=== PATIENT | male | born 1965 | race Caucasian/White ===

== ENCOUNTER 2021-12-27 15:19 | Emergency (ER) | payer OTHER ==
[2021-12-27] MEDS ORDERED: MORPHINE 4 MG/ML SYR ONE ×2 (16:56→18:03)
[2021-12-27] MEDS ORDERED: NA CHLORIDE 0.9% 1,000 ML ONE ×2 (16:57→18:12)
[2021-12-27] MEDS ORDERED: ONDANSETRON 4 MG/2 ML VIAL ONE (16:57)
[2021-12-27 17:06] LABS: Absolute Lymphocytes (CBC) 0.4 K/uL (0.7-4.9); Hematocrit 46.2 % (39.6-49.0); Lymphocytes % 3.2 % (15.3-44.8); MPV 9.9 fL (7.6-11.3); RBC Red Blood Cell Count 5.19 M/uL (4.33-5.43)
[2021-12-27 17:21] LABS: Albumin 4.2 g/dL (3.4-5.0); Bilirubin Total 0.7 mg/dL (0.2-1.0); Potassium 4.3 mmol/L (3.5-5.1); Protein, Total 8.1 g/dL (6.4-8.2)
--- NOTE | 2021-12-27 17:55 | RAD REPORT ---
EXAM DESCRIPTION: CT - Stone Protocol - 12/27/2021 5:44 pm CLINICAL HISTORY: Flank pain. Flank pain, kidney stone suspected COMPARISON: No comparisons TECHNIQUE: Axial images were obtained without oral or IV contrast. Lack of contrast limits solid org an and vascular assessment. The [id number] spans the entirety of the system partially obscuring uppermost abdomen and lung bases. Coronal reformatted images were obtained and reviewed. All CT scans are performed using dose optimization technique as appropriate and may include automated exposure control or mA/KV adjustment according to patient size. FINDINGS: The lower lung [place] are clear. Possible cholelithiasis. Low-density lesions are seen throughout the liver suspected to represent cysts. The spleen is normal in size. The pancreas and adrenal glands are normal. No pathologic lymphadenopathy in the abdomen or pelvis. 7 mm calculus is present distal left ureter with moderate left hydronephrosis and hydroureter. No bowel obstruction, free air, free fluid or abscess. Normal appendix noted. Mild lumbar degenerative changes. IMPRESSION: 7 mm stone is present distal left ureter with moderate left hydronephrosis and hydrouret er.
[2021-12-27] MEDS ORDERED: MAGNESIUM SULFATE 1 gm IVPB 1 GM/100 ML BAG IV ONE (18:32)
[2021-12-27] MEDS ORDERED: TAMSULOSIN 0.4 MG SR CAP ONE (18:32)
[2021-12-27 19:27] LABS: Urine Blood 2+ (Negative); Urine Glucose Negative (Negative); Urine Protein Trace (Negative); Urine Specific Gravity 1.025 (1.005-1.030)
[2021-12-27 20:21] LABS: Urine Bacteria <20 /HPF (NONE SEEN); Urine Mucus SLIGHT /HPF (NONE SEEN)
--- NOTE | 2021-12-27 20:23 | EDPHYS ---
Physician Documentation [facility] Name: David Lilly Jr Age: 56 yrs Sex: Male : 1965 Arrival Date: 12/27/2021 Time: 15:20 Bed 13 Private MD: ED Physician Ivan Fairchild Historical: - Allergies: 12/27 18:43 No Known Allergies; ss - PMHx: 18:43 None; ss - PSHx: 15:46 Tonsillectomy; ld1 - Immunization history:: Adult Immunizations up to date, Client reports having NOT received the Covid vaccine. - Social history:: Smoking status: Patient denies any tobacco usage or history of. Patient/guardian denies using alcohol. Vital Signs: 15:46 BP 113 / 64; Pulse 67; Resp 18; Temp 98.2(TE); Pulse Ox 100% on R/A; Weight 77.11 kg; ld1 Height 5 ft. 6 in. (167.64 cm); Pain 10/10; 18:30 BP 131 / 77; Pulse 67; Resp 17 S; Pulse Ox 100% on R/A; Pain 4/10; ss 15:46 Body Mass Index 27.44 (77.11 kg, 167.64 cm) ld1 MDM: 16:20 Patient medically screened. 12/27 15:52 Order name: CBC with Diff; Complete Time: 18:00 12/27 18:00 Interpretation: Normal except: WBC 13.3; LINA% 93.5; LYM% 3.2; MN% 2.7; NEUT A 12.4; cp LYMA 0.4. 12/27 15:52 Order name: CMP; Complete Time: 18:00 12/27 18:00 Interpretation: Normal except: GLUC 118; BUN 21; CRE 1.55; GFR 52; GLOB 3.9. 12/27 15:52 Order name: Lipase; Complete Time: 18:00 12/27 15:52 Order name: Urine Microscopic Only; Complete Time: 20:21 cp 12/27 20:21 Interpretation: URBC 5-10; Reviewed. 12/27 19:28 Order name: Urine Dipstick-Ancillary; Complete Time: 19:36 EDMS 12/27 19:36 Interpretation: Normal except: UKET 3+; UBLD 2+; UPROT Trace. 12/27 16:33 Order name: CT Stone Protocol; Complete Time: 18:00 12/27 18:01 Interpretation: Report reviewed. 12/27 15:52 Order name: IV Saline Lock; Complete Time: 16:48 cp 12/27 15:52 Order name: Labs collected and sent; Complete Time: 16:48 cp 12/27 15:52 Order name: Urine Dipstick-Ancillary (obtain specimen); Complete Time: 19:28 cp 12/27 18:46 Order name: PO challenge; Complete Time: 19:28 cp Administered Medications: 16:56 Drug: NS 0.9% 1000 ml Route: IV; Rate: 1 bolus; Site: left antecubital; 9 17:30 Follow up: IV Status: Completed infusion; IV Intake: 1000ml 16:57 Drug: Zofran (Ondansetron) 4 mg Route: IVP; Site: left antecubital; jg9 17:30 Follow up: Response: No adverse reaction [facility] [place] 16:57 Drug: morphine 4 mg Route: IVP; Infused Over: 4 mins; Site: left antecubital; jg9 17:30 Follow up: Response: No adverse reaction 9 18:00 Drug: morphine 4 mg Route: IVP; Infused Over: 4 mins; Site: right antecubital; ss 18:41 Follow up: Response: No adverse reaction; Marked relief of symptoms ss 18:07 Drug: NS 0.9% 1000 ml Route: IV; Rate: 1 bolus; Site: right antecubital; ss 18:40 Drug: Magnesium Sulfate 1 grams Route: IVPB; Infused Over: 1 hrs; Site: left ss antecubital; 18:41 Drug: Flomax (tamsulosin) 0.4 mg Route: PO; ss 18:42 Follow up: Response: No adverse reaction ss Disposition Summary: 12/27/21 20:22 Discharge Ordered Location: Home cp Problem: new cp Symptoms: have improved cp Condition: Stable cp Diagnosis - Calculus of ureter - left cp Followup: cp - With: Mina Meraz MD - When: 2 - 3 days - Reason: Recheck today's complaints Discharge Instructions: - Discharge Summary Sheet cp - Kidney Stones cp Forms: - Medication Reconciliation Form cp - Thank You Letter cp - Antibiotic Education cp - Prescription Opioid Use cp Prescriptions: - Flomax 0.4 mg Oral capsule - take 1 capsule by ORAL route once daily 1/2 hour following the same meal each cp day; 7 capsule; Refills: 0, Product Selection Permitted - Zofran 4 mg Oral Tablet - take 1 tablet by ORAL route every 12 hours As needed; 20 tablet; Refills: 0, cp Product Selection Permitted - Tylenol-Codeine #3 300 mg-30 mg Oral - take 2 tablet by ORAL route every 6-8 hours; 20 tablet; Refills: 0, Product cp Selection Permitted Signatures: Dispatcher [employer] EDMS Eva Au RN RN ss Lee Berrios PA PA cp Georgina Eller RN RN ld1 Terrie Orellana RN RN jg9 Corrections: (The following items were deleted from the chart) 15:46 15:46 Allergies: No Known Allergies; ld1 ld1 15:46 15:46 Home Meds: None; 1 ld1 15:46 15:46 PMHx: None; 1 ld1 15:46 15:46 PSHx: None; 1 ld1 16:40 15:53 Abdomen Pelvis W Con+CT.RAD.BRZ ordered. EDHI EDMS
--- NOTE | 2021-12-27 20:23 | ER ---
Nurse's Notes [facility] Name: David Lilly Jr Age: 56 yrs Sex: Male : 1965 Arrival Date: 12/27/2021 Time: 15:20 Bed 13 Private MD: Diagnosis: Calculus of ureter-left Presentation: 12/27 15:46 Chief complaint: Patient states: LUQ pain since 0630 this morning. Pt reports injuring ld1 stomach doing heavy lifting 3 days ago. "I think it is my spleen.". Coronavirus screen: At this time, the client does not indicate any symptoms associated with coronavirus-19. Ebola Screen: No symptoms or risks identified at this time. Initial Sepsis Screen: Does the patient meet any 2 criteria? No. Patient's initial sepsis screen is negative. Does the patient have a suspected source of infection? No. Patient's initial sepsis screen is negative. Risk Assessment: Do you want to hurt yourself or someone else? Patient reports no desire to harm self or others. Onset of symptoms was December 27, 2021. 15:46 Method Of Arrival: Ambulatory ld1 15:46 Acuity: HARRIET 3 ld1 Triage Assessment: 15:46 General: Appears in no apparent distress. uncomfortable, Behavior is anxious, fussy. ld1 Pain: Complains of pain in left upper quadrant Pain radiates to left arm Pain currently is 10 out of 10 on a pain scale. Quality of pain is described as sharp, shooting, throbbing. EENT: No signs and/or symptoms were reported regarding the EENT system. Neuro: Level of Consciousness is awake, alert, obeys commands, Oriented to person, place, time, situation. Cardiovascular: Capillary refill < 3 seconds Patient's skin is warm and dry. Respiratory: Airway is patent Respiratory effort is even, unlabored. GI: Abdomen is flat, non-distended. : No signs and/or symptoms were reported regarding the genitourinary system. Derm: No signs and/or symptoms reported regarding the dermatologic system. Musculoskeletal: No signs and/or symptoms reported regarding the musculoskeletal system. Historical: - Allergies: 18:43 No Known Allergies; ss - PMHx: 18:43 None; ss - PSHx: 15:46 Tonsillectomy; ld1 - Immunization history:: Adult Immunizations up to date, Client reports having NOT received the Covid vaccine. - Social history:: Smoking status: Patient denies any tobacco usage or history of. Patient/guardian denies using alcohol. Screenin:43 Abuse screen: Denies threats or abuse. Denies injuries from another. Nutritional ss screening: No deficits noted. Tuberculosis screening: No symptoms or risk factors identified. Fall Risk None identified. Assessment: 18:15 GI: Bowel sounds present X 4 quads. Abd is soft X 4 quads Abdomen is tender to ss palpation in abdomen and left upper quadrant. 18:43 Reassessment: Patient and/or family updated on plan of care and expected duration. Pain ss level reassessed. Patient is alert, oriented x 3, equal unlabored respirations, skin warm/dry/pink. Patient states feeling better. Patient states symptoms have improved. 19:32 Reassessment: Patient appears in no apparent distress at this time. Patient and/or ke1 family updated on plan of care and expected duration. Pain level reassessed. Patient is alert, oriented x 3, equal unlabored respirations, skin warm/dry/pink. Patient states feeling better. Patient states symptoms have improved. Vital Signs: 15:46 BP 113 / 64; Pulse 67; Resp 18; Temp 98.2(TE); Pulse Ox 100% on R/A; Weight 77.11 kg; ld1 Height 5 ft. 6 in. (167.64 cm); Pain 10/10; 18:30 BP 131 / 77; Pulse 67; Resp 17 S; Pulse Ox 100% on R/A; Pain 4/10; ss 15:46 Body Mass Index 27.44 (77.11 kg, 167.64 cm) ld1 ED Course: 15:20 Patient arrived in ED. as 15:46 Arm band placed on right wrist. ld1 15:48 Triage completed. 1 15:50 Terrie Gaines FNP is PHCP. [facility] 15:50 Ivan Fairchild MD is Attending Physician. 7 15:50 Lee Berrios PA is PHCP. cp 16:47 Terrie Orellana, RN is Primary Nurse. jg9 16:49 Inserted saline lock: 20 gauge in right antecubital area, using aseptic technique. oj Blood collected. 17:45 CT Stone Protocol In Process Unspecified. EDMS 18:44 Patient has correct armband on for positive identification. Bed in low position. Call light in reach. Side rails up X 1. 20:21 Mina Meraz MD is Referral Physician. cp Administered Medications: 16:56 Drug: NS 0.9% 1000 ml Route: IV; Rate: 1 bolus; Site: left antecubital; jg9 17:30 Follow up: IV Status: Completed infusion; IV Intake: 1000ml ss 16:57 Drug: Zofran (Ondansetron) 4 mg Route: IVP; Site: left antecubital; jg9 17:30 Follow up: Response: No adverse reaction 9 16:57 Drug: morphine 4 mg Route: IVP; Infused Over: 4 mins; Site: left antecubital; jg9 17:30 Follow up: Response: No adverse reaction 9 18:00 Drug: morphine 4 mg Route: IVP; Infused Over: 4 mins; Site: right antecubital; ss 18:41 Follow up: Response: No adverse reaction; Marked relief of symptoms ss 18:07 Drug: NS 0.9% 1000 ml Route: IV; Rate: 1 bolus; Site: right antecubital; ss 18:40 Drug: Magnesium Sulfate 1 grams Route: IVPB; Infused Over: 1 hrs; Site: left ss antecubital; 18:41 Drug: Flomax (tamsulosin) 0.4 mg Route: PO; ss 18:42 Follow up: Response: No adverse reaction ss Intake: 17:30 IV: 1000ml; Total: 1000ml. Outcome: 20:22 Discharge ordered by . cp 20:34 Patient left the ED. mw2 Signatures: Dispatcher [employer] EDUT Anya Gonzales Shelby, RN RN Lee Ramirez PA PA cp Abena Talbot mw2 Georgina Eller RN RN [email or web address] Terrie Orellana RN RN jg9 Paty Moore RN RN ke1 Terrie Gaines, GLAZIER HELPER GLAZIER HELPER 7 Yamile Alonso Corrections: (The following items were deleted from the chart) 15:46 15:46 Allergies: No Known Allergies; ld1 ld1 15:46 15:46 Home Meds: None; ld1 ld1 15:46 15:46 PMHx: None; ld1 ld1 1546 15:46 PSHx: None; ld1 ld1
[2021-12-27] MEDS ORDERED: CODEINE 30MG/APAP 300MG TAB ONE (20:36)
[2021-12-27 21:38] VITALS: TEMP 98.2; O2SAT 100
[2021-12-27 21:39] VITALS: BP 131/77
== END 2021-12-27 20:34 | disposition home or self-care (01) ==
LOC: ER 15:19
DX: N20.1 Calculus of ureter (principal)
CPT/HCPCS: 85025; 36415; 83690; 80053; 76377; 74176; J3475; J7030 ×2; J2405; 81003; 81015